=== PATIENT | female | born 1980 | race Caucasian/White ===

== ENCOUNTER 2019-12-12 16:04 | Emergency (ER) | payer OTHER ==
[~2019-12-12] VITALS: Ht 167.6 cm; Wt 79.4 kg
[2019-12-12 16:10] VITALS: BP 114/80
[2019-12-12] MEDS ORDERED: HYDROcodone-ACET 5/325MG TAB PO ONE (17:45)
== END 2019-12-12 18:34 | disposition home or self-care (01) ==
LOC: EDBD 16:04 → ER 16:17
DX: S62.001A Unspecified fracture of navicular [scaphoid] bone of right wrist, initial encounter for closed fracture (principal); S60.222A Contusion of left hand, initial encounter; S80.02XA Contusion of left knee, initial encounter; F32.9 Major depressive disorder, single episode, unspecified; G89.29 Other chronic pain; V43.52XA Car driver injured in collision with other type car in traffic accident, initial encounter; Y93.89 Activity, other specified; Y92.410 Unspecified street and highway as the place of occurrence of the external cause; Y99.8 Other external cause status
CPT/HCPCS: 29125; 73110; 73562